=== PATIENT | male | born 1945 | race Caucasian/White ===

== ENCOUNTER 2018-07-23 09:45 | Day surgery (SDC) | payer MEDICARE, OTHER, SELFPAY ==
--- NOTE | 2018-07-23 | PATH_ITS ---
[facility] Accession Number: [id number] . 01 Material submitted: . PART A: POLYP BIOPSY IN THE CECUM PART B: POLYP BIOPSY AT 30CM . 02 Diagnosis: A. Polyp Biopsy in the Cecum: Tubular adenoma (multiple fragments); negative for high-grade dysplasia. . B. Polyp Biopsy at 30 cm: Serrated polyp, cannot exclude sessile serrated adenoma. MRV/07/25/2018 . 02 Electronically signed: . Arianna Cho MD, Pathologist NPI- [id number] . 01 Gross description: . Part A: POLYP BIOPSY IN THE CECUM: Received in formalin are multiple fragment(s) of vega, soft tissue measuring 1.0 x 0.5 x 0.2 cm in aggregate submitted entirely in 1 cassette(s) Part B: POLYP BIOPSY AT 30CM: Received in formalin are multiple fragment(s) of vega, soft tissue measuring 1.1 x 0.4 x 0.2 cm in aggregate submitted entirely in 1 cassette(s) /CKI /CKI . 02 Pathologist provided ICD-10: K63.5 . 02 CPT . 981390, 931381 Performed at: 01 [facility] [address], [place], [place] [id number] MD Bobby Saleh MD Phone: [phone] Performed at: 02 [facility] [address] [place], [place] [id number] MD Ricco Santana MD Phone: [phone]
[2018-07-23 10:18] VITALS: BP 150/81; PULSE 61; RESP 16; TEMP 36.1; O2SAT 99; BMI 27.4
[2018-07-23] MEDS: SODIUM CHLORIDE 0.9% 1,000 ML 200 ML IV (10:32)
--- NOTE | 2018-07-23 12:03 | PM.HP.1 ---
History of Present Illness Date Patient Seen: 07/23/18 Time Patient Seen: 12:03 Chief complaint: colonoscopy 60012 Narrative: The patient is a gentleman here for a screening colonoscopy. Last exam was 5 years ago. Since his last exam his sisters had colon cancer. He has a personal history of polyps. Patient History Medical History Essential hypertension with goal blood pressure less than 130/85 (Chronic) Surgical History H/O right inguinal hernia repair (Resolved) Previous back surgery (Resolved) Family & Social History Family History: Reviewed 07/23/18 by Lawrence Yates MD Social History: household members spouse Meds Home Medications Medication Instructions Recorded Confirmed Type IBUPROFEN (#MOTRIN / ADVIL) 400 mg PO #0 01/12/12 History losartan 50 mg PO QDAY #180 tab 10/31/16 Rx metoprolol succinate 50 mg PO BID #180 ter 04/09/17 Rx magnesium chloride [Slow-Mag] 1 ect PO QDAY #0 09/24/17 History Allergies Allergy/AdvReac Type Severity Reaction Status Date / Time amoxicillin Allergy Intermediate RASH, FEVER Unverified 02/27/18 13:10 gabapentin [GABAPENTIN] AdvReac Intermediate interferes Unverified 02/27/18 13:10 with short-term memory Review of Systems Review of Systems All systems reviewed & are unremarkable except as noted in HPI and below Gastrointestinal Comments: History of Mack's esophagus. Last scope a few years back. Exam Vital Signs (past 8 hours): - 07/23/18 10:18 Temperature 96.9 F L Pulse Rate 61 Respiratory Rate 16 Blood Pressure 150/81 H Pulse Oximetry 99 Oxygen Delivery Method Room Air Narrative Exam Narrative: Operative no apparent distress. Lungs are clear to auscultation no rales or rhonchi. Heart regular rate and rhythm without murmur gallop. Abdomen is scaphoid soft nontender without mass. Patient is alert and oriented x3. Assessment & Plan Plan: Assessment/Plan Narrative: Patient with a family history of colon cancer for screening colonoscopy. I discussed procedure rationale with him. Risks of bleeding, perforation which was necessitate a major operation, failure to find removal lesions of potential tattoo were all discussed. He appears to understand wishes to proceed
--- NOTE | 2018-07-23 12:07 | P.HP_ITS ---
History of Present Illness Date Patient Seen: 07/23/18 Time Patient Seen: 12:03 Chief complaint: colonoscopy [id number] Narrative: The patient is a gentleman here for a screening colonoscopy. Last exam was 5 years ago. Since his last exam his sisters had colon cancer. He has a personal history of polyps. Patient History Medical History Essential hypertension with goal blood pressure less than 130/85 (Chronic) Surgical History H/O right inguinal hernia repair (Resolved) Previous back surgery (Resolved) Family & Social History Family History: Reviewed 07/23/18 by Lawrence Yates MD Social History: household members spouse Meds Home Medications Medication Instructions Recorded Confirmed Type IBUPROFEN (#MOTRIN / ADVIL) 400 mg PO #0 01/12/12 History losartan 50 mg PO QDAY #180 tab 10/31/16 Rx metoprolol succinate 50 mg PO BID #180 ter 04/09/17 Rx magnesium chloride [Slow-Mag] 1 ect PO QDAY #0 09/24/17 History Allergies Allergy/AdvReac Type Severity Reaction Status Date / Time amoxicillin Allergy Intermediate RASH, FEVER Unverified 02/27/18 13:10 gabapentin [GABAPENTIN] AdvReac Intermediate interferes Unverified 02/27/18 13: 10 with short-term memory Review of Systems Review of Systems All systems reviewed & are unremarkable except as noted in HPI and below Gastrointestinal Comments: History of Mack's esophagus. Last scope a few years back. Exam Vital Signs (past 8 hours): - 07/23/18 10:18 Temperature 96.9 F L Pulse Rate 61 Respiratory Rate 16 Blood Pressure 150/81 H Pulse Oximetry 99 Oxygen Delivery Method Room Air Narrative Exam Narrative: Operative no apparent distress. Lungs are clear to auscultation no rales or rhonchi. Heart regular rate and rhythm without murmur gallop. Abdomen is scaphoid soft nontender without mass. Patient is alert and oriented x3. Assessment & Plan Plan: Assessment/Plan Narrative: Patient with a family history of colon cancer for screening colonoscopy. I discussed procedure rationale with him. Risks of bleeding, perforation which was necessitate a major operation, failure to find removal lesions of potential tattoo were all discussed. He appears to understand wishes to proceed
[2018-07-23] MEDS: fentaNYL 250 MCG/5 ML INJ IV (12:35)
--- NOTE | 2018-07-23 12:43 | PM.OP.ENDO ---
Operative Date/Time/Diagnoses Date of procedure: 07/23/18 Time of procedure: 12:43 Pre-op diagnosis: Screening examination. Family history colon cancer. Last exam 5 years ago. Personal history of polyps. Post-op diagnosis: same (Multiple tiny polyps located at the ascending and cecal areas. Three were placed in the same container because they are all from the right side. One additional polyp was found at about 30 cm.) Procedure & Clinicians Study performed: Colonoscopy with cold biopsy Same procedure as scheduled: Yes Indications: Screening. Procedure Notes SCOAP/Timeout: Performed Procedure in detail: The patient was placed in the left lateral decubitus position and underwent IV sedation directed by the surgeon consisting of fentanyl and Versed. Digital exam was unremarkable. Prostate was fairly normal in size. The scope was inserted and advanced through the rectum into the sigmoid, descending, transverse, and ascending colon. The patient was noted to have a large number of sigmoid diverticulosis causing tortuosity and mild narrowing. The cecum was reached identified by the ileocecal valve and the appendiceal opening. There was a small polyp like lesion in the cecum which was removed with cold biopsy forceps. The scope was gradually brought out. Two additional small polyps were found in the ascending colon were placed with a cecal polyp. One other Polyps was found at[30 cm and was biopsied repeatedly and completely removed.]. The scope ultimately was retroflexed in the rectum. The appearance was[unremarkable]. The scope was removed and the patient tolerated the procedure well Scope withdrawal time: 14 min Sedation minutes: 35 Findings: diverticulosis (With narrowing and tortuosity of the sigmoid) and polyp (Small) Specimen(s): other (Polyps) Complications: none Recommendations: Colonscopy in 5 years (Due to personal and family history) Follow up: as needed Disposition: PACU
[2018-07-23] MEDS: MIDAZOLAM 5 MG/5 ML VIAL IV (12:46)
[2018-07-23 12:58] VITALS: BP 120/65; PULSE 57; RESP 16; TEMP 36.2; O2SAT 95
--- NOTE | 2018-07-23 13:07 | SUR.PHASEII ---
REPORT TO TRISHA.
[2018-07-23 13:10] VITALS: BP 104/59; PULSE 56; RESP 16; O2SAT 96
== END 2018-07-23 13:21 | disposition home or self-care (01) ==
PROVIDERS: Visit Provider Specialist
PROC: 0DJD8ZZ Inspection of Lower Intestinal Tract, Via Natural or Artificial Opening Endoscopic (ICD-10-PCS; CPT 45378; principal; 2018-07-23 10:45)
DX: Z12.11 Encounter for screening for malignant neoplasm of colon (principal); Z80.0 Family history of malignant neoplasm of digestive organs; I10 Essential (primary) hypertension; Z86.010 Personal history of colon polyps; K57.30 Diverticulosis of large intestine without perforation or abscess without bleeding; D12.0 Benign neoplasm of cecum; D12.2 Benign neoplasm of ascending colon
CPT/HCPCS: 45380; 88305; 99152; 99153; J2250; J3010

== ENCOUNTER → 2018-11-05 08:40 | Outpatient (CLI) | payer MEDICARE, OTHER, SELFPAY ==
--- NOTE | 2018-11-05 | DI.RAD.S_ITS ---
PROCEDURE: XR FOOT RT MIN 3V INDICATIONS: PAIN OF RIGHT ANKLE AND RIGHT FOOT TECHNIQUE: 3 views of the foot were acquired. COMPARISON: None. FINDINGS: Bones: No fractures or dislocations. No suspicious bony lesions. Mild ununited spurring/dystrophic ossification at the Achilles insertion. First MTP joint degeneration, and diffuse hindfoot and midfoot spurring. Hallux valgus appearance all weight-bearing views would be more specific Soft tissues: No tibiotalar joint effusion. Achilles tendon appears normal. IMPRESSION: Diffuse degenerative changes above. No fracture. Hallux valgus. Weight -bearing views would be more specific. Mild distal Achilles tendinopathy Dictated by: Hi Beaver M.D. on 11/05/2018 at 9:39 Approved by: Hi Beaver M.D. on 11/05/2018 at 9:45
--- NOTE | 2018-11-05 | DI.RAD.S_ITS ---
PROCEDURE: XR ANKLE RT MIN 3V INDICATIONS: PAIN OF RIGHT ANKLE AND RIGHT FOOT TECHNIQUE: 3 views of the ankle were acquired. COMPARISON: None. FINDINGS: Bones: No fractures or dislocations. Ankle mortise is normally aligned. No suspicious bony lesions. Subtle dystrophic calcifications seen at the Achilles insertion site. There are scattered vascular calcifications. Tibiotalar degenerative spurring, and at the tips of the medial and lateral malleoli Soft tissues: No tibiotalar joint effusion. Achilles tendon appears normal. Mild circumferential swelling IMPRESSION: Circumferential soft tissue swelling. Mild degenerative spurring as above, and probable low-grade Achilles tendinopathy, age-indeterminate. No fracture. Dictated by: Hi Beaver M.D. on 11/05/2018 at 10:12 Approved by: Hi Beaver M.D. on 11/05/2018 at 10:15
== END ==
PROVIDERS: Visit Provider Family Medicine
DX: M79.671 Pain in right foot (principal); M25.571 Pain in right ankle and joints of right foot; M19.071 Primary osteoarthritis, right ankle and foot; M20.11 Hallux valgus (acquired), right foot; M79.89 Other specified soft tissue disorders; M77.51 Other enthesopathy of right foot and ankle
CPT/HCPCS: 73610; 73630

== ENCOUNTER → 2021-01-24 08:59 | Outpatient (CLI) | payer MEDICARE, OTHER, SELFPAY | PROVIDERS: PCP Family Medicine; Referring Provider Family Medicine; Visit Provider Family Medicine | DX: M47.16 Other spondylosis with myelopathy, lumbar region (principal); Z53.20 Procedure and treatment not carried out because of patient's decision for unspecified reasons ==

== ENCOUNTER → 2021-02-14 09:32 | Outpatient (CLI) | payer MEDICARE, OTHER, SELFPAY ==
--- NOTE | 2021-02-14 | DI.MRI.S_ITS ---
PROCEDURE: MR LUMBAR SPINE WO CON INDICATIONS: other sponylosis with myelopathy TECHNIQUE: Noncontrast sagittal T1 spin echo and T2 fast echo, sagittal STIR, axial T1 and T2 fast spin echo through the lumbar spine. In cases with scoliosis, additional coronal T2 fast spin echo may be performed. COMPARISON: [facility], MR, L-SPINE WITHOUT CONTRAST, 01/27/2015, 10:40. FINDINGS: Image quality: Excellent. Alignment and Curvature: There is grade 1 retrolisthesis of L2 on L3, L3 on L4, L4 on L5 measuring 2 mm, 5 mm and 5 mm respectively. There is grade 1 anterolisthesis of L4 on L5 measuring 3 mm. These are unchanged. Bone Marrow: Marrow is of normal overall signal. No acute vertebral body compression fractures. Spinal Cord: Conus medullaris terminates at the L2 level. Visualized cord demonstrates normal signal and size. Paraspinous Soft Tissues: No paravertebral masses. Discs: [id number] desiccation is present throughout the lumbar spine most severe at L5-S1. L1-L2: No disc bulge, spinal stenosis or foraminal narrowing. Minimal epidural lipomatosis with mild facet and ligamentum flavum hypertrophy. L2-L3: Mild disc bulge with minimal spinal stenosis. Mild left foraminal narrowing, slightly progressive. Facet and ligamentum flavum hypertrophy as well as epidural lipomatosis are present. L3-L4: Mild disc bulge with mild spinal stenosis. Moderate left and [id number] right foraminal narrowing with facet and ligamentum flavum hypertrophy as well as epidural lipomatosis. No interval change. L4-L5: Posterior laminectomy changes are present. Mild disc bulge. There is mild spinal stenosis predominantly secondary to facet hypertrophy, unchanged fluid epidural lipomatosis. Bilateral mild bilateral foraminal narrowing with facet and ligamentum flavum hypertrophy. L5-S1: Mild disc bulge with mild spinal stenosis. Moderate bilateral foraminal narrowing with facet and ligamentum flavum hypertrophy. No interval change. IMPRESSION: 1. Multilevel disc bulges, spinal stenosis and foraminal narrowing, relatively stable, noting small areas of interval progression as above. 2. Multilevel foraminal narrowing most notable at L3-4 and L5-S1 secondary to facet arthropathy. 3. Multilevel spinal stenosis most notable at L3-4, L4-5 and L5-S1 secondary to disc bulge with contributing effect of facet/ligamentum flavum arthropathy and epidural lipomatosis. Dictated by: Laurel Cullen M.D. on 02/14/2021 at 14:01 Approved by: Laurel Cullen M.D. on 02/14/2021 at 14:12
== END ==
PROVIDERS: PCP Family Medicine; Referring Provider Family Medicine; Visit Provider Family Medicine
DX: M47.16 Other spondylosis with myelopathy, lumbar region (principal); M51.06 Intervertebral disc disorders with myelopathy, lumbar region; M48.061 Spinal stenosis, lumbar region without neurogenic claudication; M48.07 Spinal stenosis, lumbosacral region
CPT/HCPCS: 72148

== ENCOUNTER → 2021-03-15 08:59 | Outpatient (CLI) | payer MEDICARE, OTHER, SELFPAY ==
--- NOTE | 2021-03-15 09:01 | DI.RAD.S_ITS ---
PROCEDURE: XR LUMBAR SPINE MIN 4V INDICATIONS: LOW BACK PAIN LEFT LOWER EXTREMITY RADICULOPATHY TECHNIQUE: 5 views of the lumbar spine were acquired, including bilateral oblique views. COMPARISON: None. FINDINGS: Bones: 5 nonrib-bearing vertebrae are present. There is normal bony alignment. No vertebral body compression fractures. No suspicious bony lesions. There is moderate disc height reduction at T12-L1 and mild such degenerative change at L1-L2 and L2-L3. Facet osteoarthritis at this level allows slight retrolisthesis of L2 across L3. A slightly greater degree of facet osteoarthritis allowing slightly greater retrolisthesis of L3 across the L4 and also contributes to foraminal stenosis at this level. At L4-L5 there is mild degenerative disc disease but moderate facet osteoarthritis. At L5-S1 there is moderately severe degenerative disc disease and facet osteoarthritis. Soft tissues: Overlying bowel gas pattern is normal. No suspicious soft tissue calcifications. Oblique images: No pars defects. IMPRESSION: Multilevel degenerative disc disease and facet osteoarthritis with no sign of prior trauma. Multilevel foraminal stenosis likely is present. Overall the degree of degeneration appears symmetric bilaterally. Dictated by: Vin Villarreal M.D. on 03/15/2021 at 9:53 Approved by: Vin Villarreal M.D. on 03/15/2021 at 9:59
== END ==
PROVIDERS: PCP Family Medicine; Referring Provider Physical Medicine & Rehabilitation; Visit Provider Physical Medicine & Rehabilitation
DX: M54.16 Radiculopathy, lumbar region (principal); M51.36 Other intervertebral disc degeneration, lumbar region; M47.816 Spondylosis without myelopathy or radiculopathy, lumbar region
CPT/HCPCS: 72110

== ENCOUNTER → 2021-04-15 09:19 | Outpatient (CLI) | payer MEDICARE, OTHER, SELFPAY ==
[2021-04-15 20:02] LABS: Vitamin B12 281 pg/mL (239-931)
== END ==
PROVIDERS: PCP Family Medicine; Visit Provider Family Medicine
DX: E53.8 Deficiency of other specified B group vitamins (principal)
CPT/HCPCS: 82607

== ENCOUNTER → 2021-06-07 12:33 | Outpatient (CLI) | payer MEDICARE, OTHER, SELFPAY ==
[2021-06-07 20:21] LABS: COVID19 - ORCAS (NP or Nasal) Negative (Negative)
== END ==
PROVIDERS: PCP Family Medicine; Visit Provider Physician Assistant
DX: Z20.822 Contact with and (suspected) exposure to COVID-19 (principal)
CPT/HCPCS: C9803; U0003

== ENCOUNTER 2021-06-09 12:22 | Outpatient (CLI) | payer MEDICARE, OTHER, SELFPAY ==
[2021-06-09] VITALS (8 sets, daily range): BP systolic 122–196; BP diastolic 55–94; PULSE 64–72; RESP 10–20; TEMP 36.6; O2SAT 97–99
--- NOTE | 2021-06-09 12:26 | DI.RAD.S_ITS ---
PROCEDURE: PAIN L/S TRANSFORAMINAL INJECT INDICATIONS: SPONDYLOSIS COMPARISON: [facility], CR, XR LUMBAR SPINE MIN 4V, 03/15/2021, 8:59. FINDINGS: Fluoroscopic spot filming was performed to verify placement of a spinal needle at the L5-S1 level, as labeled on the films. Appropriate location of the needle tip was confirmed by injection of iodinated contrast. IMPRESSION: No significant intraprocedural abnormality. Dictated by: Byron Church M.D. on 06/09/2021 at 13:05 Approved by: Byron Church M.D. on 06/09/2021 at 13:06
[2021-06-09] MEDS: MIDAZOLAM 5 MG/5 ML VIAL IV (13:17)
[2021-06-09] MEDS: fentaNYL 100 MCG/2 ML INJ 50 MCG IV (13:17)
[2021-06-09] MEDS: IOPAMIDOL 15 ML VIAL 3 ML INJ (13:22)
[2021-06-09] MEDS: DEXAMETHASONE 10 MG/ML VIAL 20 MG INJ (13:22)
[2021-06-09] MEDS: BETAMETHASONE 30 MG/5 ML MDV 6 MG INJ (13:23)
[2021-06-09] MEDS: BUPIVACAINE 0.25% (PF) VIAL 2 ML INJ (13:23)
--- NOTE | 2021-06-13 09:50 | P.PCN_ITS ---
Date/Time/Diagnoses Date of procedure: 06/09/21 Time of procedure: 13:30 Pre-procedure diagnosis: FORAMINAL STENOSIS WITH LE SYMPTOMS Post-procedure diagnosis: same Procedure Notes Procedure: 1. FLUOROSCOPICALLY GUIDED CONTRAST CONTROLLED TRANSFORAMINAL EPIDURAL STEROID INJECTION - RIGHT L5/S1 TFESI Indications: Andre is referred by Dr. Smith for treatment of Foraminal Stenosis with Right LE Symptoms Physician: Iron Madsen Total Fluoroscopy time (seconds): 8 Total sedation minutes: 13 Complications: none Procedure in detail & Post-procedure care: FINDINGS Foraminal Nerve Root Compression secondary to disc disease and facet hypertrophy DESCRIPTION OF PROCEDURE Following review of allergy and review of potential side effects and complications, including, but not necessarily limited to, infection, allergic reaction, local tissue breakdown, stroke, temporary or permanent nerve injury, paralysis, and possible , the patient indicated that the patient understood and agreed to proceed. An informed consent document was signed by the patient, witnessed by a nurse, and placed in the patient's chart. Additionally, other treatment options including medications, modalities, and physical therapy were reviewed with the patient. After review of previous anaesthesic history and IV conscious sedation the patient was deemed safe to proceed with today?s procedure with IV conscious sedation as ASA class II designation. Safety time-out was performed to confirm patient ID, procedure to be performed and site of procedure. IV sedation was accomplished with a combination of 2mg of Versed and 50mcg of Fentanyl was administered by the RN after DO order, titrated to patient comfort during the course of the procedure while the patient remained responsive to all verbal commands In the prone position following sterile prep and drape of the lumbar region, the right L5/S1 posterior neuroforamen was identified fluoroscopically. The skin was anesthetized via a 25-gauge 1.5-inch needle with 1% lidocaine solution. At this point, a 25-gauge 3.5-inch spinal needle was atraumatically introduced and advanced under fluoroscopic guidance through the posterior right L5/S1 neuroforamen to approximately the anterior aspect of the canal. Depth was confirmed on lateral view. Following negative aspiration, injection of approximately 1.5cc of Isovue 200 under live fluoroscopy in the AP view confirmed excellent flow along the nerve root, into the epidural space without vascular or intrathecal uptake observed Radiological data, including multiple fluoroscopic views of the lumbosacral spine, reveal a spinal needle at the right L5/S1 posterior neuroforamen. Subsequent views show flow of contrast material flowing superiorly and inferiorly along the nerve root confirming epidural flow. Subsequently, a test dose of 1.5 cc of 1% lidocaine solution was administered and patient was observed for two minutes for signs or symptoms of complications, including abdominal pain, shortness of breath, bilateral upper or lower extremity weakness, nausea and vomiting, prior to steroid injection. At this point, a total of 3cc or 20mg of dexamethasone and 6mg of betamethasone was injected without incident. The procedure tolerated the procedure well without signs or symptoms of complications prior to transfer to the recovery area continued monitoring without incident. The patient was then transferred to the recovery area where they were observed for an appropriate time after the injection. The patient reported a VAS score of 7 prior to the procedure and a post- procedure VAS of 0. POST OP INSTRUCTIONS The patient was provided a Pain Log to continue to record their response to the target-specific procedure prior to follow-up visit with their referring physician. Additionally, specific post-injection care instructions and a contact number to our office were provided if concerns arise regarding possible complications associated with the procedure are suspected.
== END 2021-06-09 13:50 | disposition home or self-care (01) ==
LOC: RAD 12:25
PROVIDERS: PCP Family Medicine; Referring Provider Physical Medicine & Rehabilitation; Visit Provider Physical Medicine & Rehabilitation
DX: M48.07 Spinal stenosis, lumbosacral region (principal); M51.17 Intervertebral disc disorders with radiculopathy, lumbosacral region
CPT/HCPCS: 64483; 99152; J0702; J1100; J2250; J3010

== ENCOUNTER → 2021-07-12 08:53 | Outpatient (CLI) | payer MEDICARE, OTHER, SELFPAY ==
[2021-07-12 20:19] LABS: COVID19 - ORCAS (NP or Nasal) Negative (Negative)
== END ==
PROVIDERS: PCP Family Medicine; Referring Provider Physician Assistant; Visit Provider Physician Assistant
DX: Z20.822 Contact with and (suspected) exposure to COVID-19 (principal)
CPT/HCPCS: C9803; U0003

== ENCOUNTER 2021-07-14 10:32 | Outpatient (CLI) | payer MEDICARE, OTHER, SELFPAY ==
[2021-07-14] VITALS (8 sets, daily range): BP systolic 136–200; BP diastolic 64–96; PULSE 71–78; RESP 10–20; TEMP 37.1; O2SAT 96–99
--- NOTE | 2021-07-14 10:33 | DI.RAD.S_ITS ---
PROCEDURE: PAIN L/S TRANSFORAMINAL INJECT INDICATIONS: SPONDYLOSIS COMPARISON: [facility], , PAIN L/S TRANSFORAMINAL INJECT, 06/09/2021, 13:22. FINDINGS: Fluoroscopic spot filming was performed to verify placement of a spinal needle at the L3-L4 level, as labeled on the films. Appropriate location of the needle tip was confirmed by injection of iodinated contrast. IMPRESSION: Intraprocedural examination within normal limits. Dictated by: Byron Church M.D. on 07/14/2021 at 11:34 Approved by: Byron Church M.D. on 07/14/2021 at 11:34
[2021-07-14] MEDS: MIDAZOLAM 5 MG/5 ML VIAL IV (11:40)
[2021-07-14] MEDS: fentaNYL 100 MCG/2 ML INJ 50 MCG IV (11:42)
[2021-07-14] MEDS: IOPAMIDOL 15 ML VIAL 3 ML INJ (11:49)
[2021-07-14] MEDS: DEXAMETHASONE 10 MG/ML VIAL 20 MG INJ (11:50)
[2021-07-14] MEDS: BUPIVACAINE 0.25% (PF) VIAL 5 ML SUBCUT (11:51)
--- NOTE | 2021-07-14 11:58 | P.PCN_ITS ---
Date/Time/Diagnoses Date of procedure: 07/14/21 Time of procedure: 11:58 Pre-procedure diagnosis: 1. FORAMINAL STENOSIS WITH LE SYMPTOMS Post-procedure diagnosis: same Procedure Notes Procedure: 1. FLUOROSCOPICALLY GUIDED CONTRAST CONTROLLED TRANSFORAMINAL EPIDURAL STEROID INJECTION - RIGHT L3/4 TFESI Indications: Andre is referred by Dr. Powell for treatment of Foraminal Stenosis with right LE Symptoms Physician: Iron Madsen Total Fluoroscopy time (seconds): 10 Total sedation minutes: 13 Complications: none Procedure in detail & Post-procedure care: FINDINGS Foraminal Nerve Root Compression secondary to disc disease and facet hypertrophy DESCRIPTION OF PROCEDURE Following review of allergy and review of potential side effects and complications, including, but not necessarily limited to, infection, allergic reaction, local tissue breakdown, stroke, temporary or permanent nerve injury, paralysis, and possible , the patient indicated that the patient understood and agreed to proceed. An informed consent document was signed by the patient, witnessed by a nurse, and placed in the patient's chart. Additionally, other treatment options including medications, modalities, and physical therapy were reviewed with the patient. After review of previous anaesthesic history and IV conscious sedation the patient was deemed safe to proceed with today?s procedure with IV conscious sedation as ASA class II designation. Safety time-out was performed to confirm patient ID, procedure to be performed and site of procedure. IV sedation was accomplished with a combination of 2mg of Versed and 50mcg of Fentanyl was administered by the RN after DO order, titrated to patient comfort during the course of the procedure while the patient remained responsive to all verbal com mands In the prone position following sterile prep and drape of the lumbar region, the right L3/4 posterior neuroforamen was identified fluoroscopically. The skin was anesthetized via a 25-gauge 1.5-inch needle with 1% lidocaine solution. At this point, a 25-gauge 3.5-inch spinal needle was atraumatically introduced and advanced under fluoroscopic guidance through the posterior right L3/4 neuro foramen to approximately the anterior aspect of the canal. Depth was confirmed on lateral view. Following negative aspiration, injection of approximately 1.5 cc of Isovue 200 under live fluoroscopy in the AP view confirmed excellent flow along the nerve root, into the epidural space without vascular or intrathecal uptake observed Radiological data, including multiple fluoroscopic views of the lumbosacral spine, reveal a spinal needle at the right L3/4 posterior neuroforamen. Subsequent views show flow of contrast material flowing superiorly and inferiorly along the nerve root confirming epidural flow. Subsequently, a test dose of 1.5 cc of 1% lidocaine solution was administered and patient was observed for two minutes for signs or symptoms of complications, including abdominal pain, shortness of breath, bilateral upper or lower extremity weakness, nausea and vomiting, prior to steroid injection. At this point, a total of 3cc or 20mg of dexamethasone and 80mg of Depo medrol was injected without incident. The patient tolerated the procedure well without signs or symptoms of complications prior to transfer to the recovery area continued monitoring without incident. The patient was then transferred to the recovery area where they were observed for an appropriate time after the injection. The patient reported a VAS score of 7 prior to the procedure and a post-procedure VAS of 0. POST OP INSTRUCTIONS The patient was provided a Pain Log to continue to record their response to the target-specific procedure prior to follow-up visit with their referring physician. Additionally, specific post-injection care instructions and a contact number to our office were provided if concerns arise regarding possible complications associated with the procedure are suspected.
== END 2021-07-14 12:10 | disposition home or self-care (01) ==
PROVIDERS: PCP Family Medicine; Referring Provider Physical Medicine & Rehabilitation; Visit Provider Physical Medicine & Rehabilitation
DX: M48.061 Spinal stenosis, lumbar region without neurogenic claudication (principal); M51.16 Intervertebral disc disorders with radiculopathy, lumbar region
CPT/HCPCS: 64483; 99152; J0702; J1100; J2250; J3010

== ENCOUNTER → 2021-09-05 09:03 | Outpatient (CLI) | payer MEDICARE, OTHER, SELFPAY ==
[2021-09-05 20:20] LABS: COVID19 - ORCAS (NP or Nasal) Negative (Negative)
== END ==
PROVIDERS: PCP Family Medicine; Visit Provider Family Medicine
DX: Z20.822 Contact with and (suspected) exposure to COVID-19 (principal)
CPT/HCPCS: C9803; U0003

== ENCOUNTER 2021-09-06 10:07 | Outpatient (CLI) | payer MEDICARE, OTHER, SELFPAY ==
[2021-09-06] VITALS (7 sets, daily range): BP systolic 133–185; BP diastolic 60–91; PULSE 62–71; RESP 10–22; TEMP 36.8; O2SAT 97–100
--- NOTE | 2021-09-06 10:09 | DI.RAD.S_ITS ---
PROCEDURE: PAIN L/SI FACET INJ/BLK 1STL INDICATIONS: SPONDYLOSIS COMPARISON: [facility], , PAIN L/S TRANSFORAMINAL INJECT, 07/14/2021, 11:47. FINDINGS: Fluoroscopic spot filming was performed to verify placement of spinal needles at the right L2-L3, L3-L4, and L4-L5 level(s), as labeled on the films. Appropriate location(s) of the needle tip(s) was confirmed by injection of iodinated contrast. IMPRESSION: Intraprocedural examination within normal limits. Dictated by: Byron Church M.D. on 09/06/2021 at 13:09 Approved by: Byron Church M.D. on 09/06/2021 at 13:09
[2021-09-06] MEDS: fentaNYL 100 MCG/2 ML INJ 50 MCG IV (11:15)
[2021-09-06] MEDS: MIDAZOLAM 5 MG/5 ML VIAL IV (11:15)
[2021-09-06] MEDS: BETAMETHASONE 30 MG/5 ML MDV 12 MG INJ (11:18)
[2021-09-06] MEDS: BUPIVACAINE 0.5% (PF) VIAL 5 ML INJ (11:18)
[2021-09-06] MEDS: IOPAMIDOL 15 ML VIAL 3 ML INJ (11:18)
--- NOTE | 2021-09-06 11:29 | P.PCN_ITS ---
Date/Time/Diagnoses Date of procedure: 09/06/21 Time of procedure: 11:29 Pre-procedure diagnosis: 1. FACET ARTHROPATHY, 2. AXIAL LBP, 3. MULTILEVEL DDD Post-procedure diagnosis: same Procedure Notes Procedure: 1. FLUOROSCOPICALLY GUIDED CONTRAST CONTROLLED FACET JOINT INJECTIONS RIGHT L2/3, L3/4, L4/5 Indications: Andre is referred by Dr. Powell for treatment of Axial LBP Physician: Iron Madsen Total Fluoroscopy time (seconds): 5 Total sedation minutes: 9 Complications: none Procedure in detail & Post-procedure care: FINDINGS Multilevel Facet Arthropathy with Clinically significant axial LBP DESCRIPTION OF PROCEDURE Fluoroscopically guided, contrast-controlled right L2/3, L3/4, L4/5 facet joint injections. Following review of allergy and review of potential side effects and complications, including, but not necessarily limited to, infection, allergic reaction, local tissue breakdown, stroke, temporary or permanent nerve injury, paralysis, and possible , the patient indicated that the patient understood and agreed to proceed. An informed consent document was signed by the patient, witnessed by a nurse, and placed in the patient's chart. Additionally, other treatment options including medications, modalities, and physical therapy were reviewed with the patient. After review of previous anaesthesic history and IV conscious sedation the patient was deemed safe to proceed with today?s procedure with IV conscious sedation as ASA class II designation. Safety time-out was performed to confirm patient ID, procedure to be performed and site of procedure. IV sedation was accomplished with a combination of 2mg of Versed and 50mcg of Fentanyl administered by the RN after DO order, titrated to patient comfort during the course of the procedure while the patient remained responsive to all verbal commands. In the prone position, following sterile prep and drape of the lumbar region, the posterior aspect of the right L2/3, L3/4, L4/5 facet joints were identified fluoroscopically. The skin was anesthetized via a 25-gauge 1.5-inch needle with 1% lidocaine solution into the corresponding facet joints. At this point, a 22- gauge 3.5-inch spinal needle was atraumatically introduced and advanced under fluoroscopic guidance into the corresponding facet joints. Following negative aspiration, injections of approximately 0.2-cc of Isovue 200 confirmed interarticular placement without vascular uptake. Radiological data, including multiple fluoroscopic views of the lumbosacral spine, reveal a spinal needle at the right L2/3, L3/4, L4/5 facet joints. Subsequent views show flow of contrast material both superiorly and inferiorly within the joint space without vascular or intrathecal uptake. At this point, a total of 0.5cc including a mixture of 0.25cc Marcaine and 0.25cc betamethasone was injected without complication into each of the corresponding facet joints. The patient tolerated the procedure well without signs or symptoms of complications prior to transfer to the recovery area for further monitoring. The patient was then transferred to the recovery area where they were observed for an appropriate period of time after the injection. The patient reported a VAS score of 7 prior to the procedure and a post-procedure VAS of 0. POST OP INSTRUCTIONS The patient was provided a Pain Log to continue to record their response to the target-specific procedure prior to follow-up visit with their referring physician. Additionally, specific post-injection care instructions and a contact number to our office were provided if concerns arise regarding possible complications associated with the procedure are suspected.
== END 2021-09-06 11:46 | disposition home or self-care (01) ==
LOC: RAD 10:08
PROVIDERS: PCP Family Medicine; Referring Provider Physical Medicine & Rehabilitation; Visit Provider Physical Medicine & Rehabilitation
DX: M47.816 Spondylosis without myelopathy or radiculopathy, lumbar region (principal); M51.36 Other intervertebral disc degeneration, lumbar region; M54.59 Other low back pain
CPT/HCPCS: 64493; 64494; 64495; J0702; J2250; J3010

== ENCOUNTER → 2022-01-03 07:36 | Outpatient (CLI) | payer MEDICARE, OTHER, SELFPAY ==
[2022-01-03 19:54] LABS: COVID-19 CEPHEID PCR (VTM/NP) Negative (Negative)
== END ==
PROVIDERS: PCP Family Medicine; Visit Provider Family Medicine
DX: Z20.822 Contact with and (suspected) exposure to COVID-19 (principal)
CPT/HCPCS: C9803; U0003; U0005

== ENCOUNTER 2022-01-05 12:12 | Outpatient (CLI) | payer MEDICARE, OTHER, SELFPAY ==
[2022-01-05] VITALS (8 sets, daily range): BP systolic 120–179; BP diastolic 60–86; PULSE 57–65; RESP 12–18; TEMP 36.7; O2SAT 97–100
--- NOTE | 2022-01-05 12:15 | DI.RAD.S_ITS ---
PROCEDURE: PAIN L/SI FACET INJ/BLK 1STL INDICATIONS: SPONDYLOSIS COMPARISON: [facility], , PAIN L/SI FACET INJ/BLK 1STL, 09/06/2021, 11:19. FINDINGS: Fluoroscopic spot filming was performed to verify placement of spinal needles on the right at the L2, L3, L4, and L5 levels, as labeled on the films. Appropriate location of the needle tips was confirmed by injection of iodinated contrast. IMPRESSION: Intraprocedural examination within normal limits. Dictated by: Byron Church M.D. on 01/05/2022 at 13:01 Approved by: Byron Church M.D. on 01/05/2022 at 13:01
[2022-01-05] MEDS: fentaNYL 100 MCG/2 ML INJ 50 MCG IV (13:30)
[2022-01-05] MEDS: MIDAZOLAM 5 MG/5 ML VIAL IV (13:30)
[2022-01-05] MEDS: LIDOCAINE 1% 20 ML (13:36)
[2022-01-05] MEDS: BUPIVACAINE 0.5% (PF) VIAL 5 ML INJ (13:36)
[2022-01-05] MEDS: IOPAMIDOL 15 ML VIAL 3 ML INJ (13:36)
--- NOTE | 2022-01-05 13:47 | PM.PROC.IR.1 ---
Date/Time/Diagnoses Date of procedure: 01/05/22 Time of procedure: 13:47 Pre-procedure diagnosis: 1. FACET ARTHROPATHY This procedure is found to meet the Governor's proclamation 20-24.2 regarding non urgent procedures. This patient meets multiple criteria for the procedure including continuing or worsening of significant or severe pain, combined with further deterioration of the patient's condition or overall health as well as delay in treatment would be expected to result in less positive ultimate medical outcome. Therefore the decision to perform the procedure in an outpatient hospital setting is found to be in accordance with guidelines of the proclamation. Post-procedure diagnosis: same Procedure Notes Procedure: 1. Right L2, L3, L4, L5 MB BLOCKS Indications: Andre is referred by Dr. Powell for treatment of Right Axial LBP. Physician: Iron Madsen Total Fluoroscopy time (seconds): 7 Total sedation minutes: 11 Complications: none Procedure in detail & Post-procedure care: DESCRIPTION OF PROCEDURE Fluoroscopically guided, contrast-controlled right L2, L3, L4, L5 medial branch blocks with 0.5cc of 0.5% Marcaine. Following review of allergy and review of potential side effects and complications, including, but not necessarily limited to, infection, allergic reaction, local tissue breakdown, nerve injury, paralysis, stroke and possible , the patient indicated that the patient understood and agreed to proceed. An informed consent document was signed by the patient, witnessed by a nurse, and placed in the patient's chart. After review of previous anaesthesic history and IV conscious sedation the patient was deemed safe to proceed with today?s procedure with IV conscious sedation as ASA class II designation. Safety time-out was performed to confirm patient ID, procedure to be performed and site of procedure. IV sedation was accomplished with a combination of 2mg of Versed and 50 mcg Fentanyl was administered by the RN after DO order, titrated to patient comfort during the course of the procedure while the patient remained responsive to all verbal commands In the prone position, following sterile prep and drape of the lumbar region, the right L2, L3, L4, L5 anatomical location of the medial branch of the dorsal ramus was identified fluoroscopically. Subsequently an anesthetic skin wheal using 1% lidocaine solution was initiated at each of the anatomical spots. Subsequently then a 22-gauge 3.5-inch spinal needle was atraumatically introduced and advanced under fluoroscopic guidance at each of the corresponding sites at the right L2, L3 and L4 MB. After negative aspiration, 0.2 cc of Isovue 200 was injected, confirming placement without vascular or intrathecal uptake. Subsequently then 0.5cc of 0.5% Marcaine solution was injected at each of the corresponding sites at the right L2, L3, L4, L5 medial branch locations. The patient tolerated the procedure well without signs or symptoms of complications. The procedure tolerated the procedure well without signs or symptoms of complications prior to transfer to the recovery area continued monitoring without incident. Post-procedure, the patient was monitored initiating provocative activities to measure the amount of relief from block of the facetogenic pain. The patient reported a VAS of 7 prior to the procedure and a post-procedure VAS of 1. It has been a pleasure to assist in the diagnostic and therapeutic care of your patient. POST OP INSTRUCTIONS The patient was provided with a Pain Log to complete over the next several hours and subsequent days prior to the patient's follow up with the ordering physician. If the patient has licensed practical vocational nurse relief to the solution applied, then they may be a candidate for medial branch rhizotomy. The patient is aware, was provided, once again, with a Pain Log and will follow up with the referring physician for review and clinical correlation.
== END 2022-01-05 14:05 | disposition home or self-care (01) ==
LOC: RAD 12:15
PROVIDERS: PCP Family Medicine; Referring Provider Physical Medicine & Rehabilitation; Visit Provider Physical Medicine & Rehabilitation
DX: M47.816 Spondylosis without myelopathy or radiculopathy, lumbar region (principal); M47.817 Spondylosis without myelopathy or radiculopathy, lumbosacral region
CPT/HCPCS: 64493; 64494; 64495; 99152; J2250; J3010

== ENCOUNTER → 2022-04-04 06:58 | Outpatient (CLI) | payer MEDICARE, OTHER, SELFPAY ==
[2022-04-04 19:42] LABS: COVID19 - ORCAS (NP or Nasal) Negative (Negative)
== END ==
PROVIDERS: PCP Family Medicine; Visit Provider Physician Assistant
DX: Z20.822 Contact with and (suspected) exposure to COVID-19 (principal); Z01.812 Encounter for preprocedural laboratory examination
CPT/HCPCS: C9803; U0003

== ENCOUNTER 2022-04-06 10:38 | Outpatient (CLI) | payer MEDICARE, OTHER, SELFPAY ==
[2022-04-06] VITALS (7 sets, daily range): BP systolic 141–195; BP diastolic 68–99; PULSE 50–56; RESP 12–16; TEMP 36.3; O2SAT 99–100
--- NOTE | 2022-04-06 10:41 | DI.RAD.S_ITS ---
PROCEDURE: PAIN L/S TRANSFORAMINAL INJECT INDICATIONS: SPONDYLOSIS COMPARISON: [facility], XA, PAIN L/SI FACET INJ/BLK 1STL, 01/05/2022, 14:36. [facility], XA, PAIN L/SI FACET INJ/BLK 1STL, 09/06/2021, 11:19. [facility], XA, PAIN L/S TRANSFORAMINAL INJECT, 07/14/2021, 11:47. FINDINGS: Fluoroscopic spot filming was performed to verify placement of a spinal needle at the L4-L5 level, as labeled on the films. Appropriate location of the needle tip was confirmed by injection of iodinated contrast. IMPRESSION: Intraprocedural examination within normal limits. Dictated by: Byron Church M.D. on 04/06/2022 at 11:31 Approved by: Byron Church M.D. on 04/06/2022 at 11:34
[2022-04-06] MEDS: MIDAZOLAM 2 MG/2 ML VIAL IV (11:15)
[2022-04-06] MEDS: IOPAMIDOL 15 ML VIAL 3 ML INJ (11:19)
[2022-04-06] MEDS: DEXAMETHASONE 10 MG/ML VIAL 20 MG INJ (11:19)
[2022-04-06] MEDS: BUPIVACAINE 0.25% (PF) VIAL 2 ML INJ (11:19)
[2022-04-06] MEDS: BETAMETHASONE 30 MG/5 ML MDV 6 MG INJ (11:19)
--- NOTE | 2022-04-06 11:33 | PM.PROC.IR.1 ---
Date/Time/Diagnoses Date of procedure: 04/06/22 Time of procedure: 11:33 Pre-procedure diagnosis: 1. FORAMINAL STENOSIS WITH LE SYMPTOMS Post-procedure diagnosis: same Procedure Notes Procedure: 1. FLUOROSCOPICALLY GUIDED CONTRAST CONTROLLED TRANSFORAMINAL EPIDURAL STEROID INJECTION - RIGHT L4/5 TFESI Indications: Andre is referred by Dr. Powell for treatment of Foraminal Stenosis with Right LE Symptoms Physician: Iron Madsen Total Fluoroscopy time (seconds): 8 Total sedation minutes: 11 Complications: none Procedure in detail & Post-procedure care: FINDINGS Foraminal Nerve Root Compression secondary to disc disease and facet hypertrophy DESCRIPTION OF PROCEDURE Following review of allergy and review of potential side effects and complications, including, but not necessarily limited to, infection, allergic reaction, local tissue breakdown, stroke, temporary or permanent nerve injury, paralysis, and possible , the patient indicated that the patient understood and agreed to proceed. An informed consent document was signed by the patient, witnessed by a nurse, and placed in the patient's chart. Additionally, other treatment options including medications, modalities, and physical therapy were reviewed with the patient. After review of previous anaesthesic history and IV conscious sedation the patient was deemed safe to proceed with today?s procedure with IV conscious sedation as ASA class II designation. Safety time-out was performed to confirm patient ID, procedure to be performed and site of procedure. IV sedation was accomplished with a combination of 2mg of Versed was administered by the RN after DO order, titrated to patient comfort during the course of the procedure while the patient remained responsive to all verbal commands In the prone position following sterile prep and drape of the lumbar region, the right L4/5 posterior neuroforamen was identified fluoroscopically. The skin was anesthetized via a 25-gauge 1.5-inch needle with 1% lidocaine solution. At this point, a 25-gauge 3.5-inch spinal needle was atraumatically introduced and advanced under fluoroscopic guidance through the posterior right L4/5 neuroforamen to approximately the anterior aspect of the canal. Depth was confirmed on lateral view. Following negative aspiration, injection of approximately 1.5cc of Isovue 200 under live fluoroscopy in the AP view confirmed excellent flow along the nerve root, into the epidural space without vascular or intrathecal uptake observed Radiological data, including multiple fluoroscopic views of the lumbosacral spine, reveal a spinal needle at the right L4/5 posterior neuroforamen. Subsequent views show flow of contrast material flowing superiorly and inferiorly along the nerve root confirming epidural flow. Subsequently, a test dose of 1.5 cc of 1% lidocaine solution was administered and patient was observed for two minutes for signs or symptoms of complications, including abdominal pain, shortness of breath, bilateral upper or lower extremity weakness, nausea and vomiting, prior to steroid injection. At this point, a total of 3cc or 20mg of dexamethasone and 6mg of betamethasone was injected without incident. The procedure tolerated the procedure well without signs or symptoms of complications prior to transfer to the recovery area continued monitoring without incident. The patient was then transferred to the recovery area where they were observed for an appropriate time after the injection. The patient reported a VAS score of 7 prior to the procedure and a post-procedure VAS of 0. POST OP INSTRUCTIONS The patient was provided a Pain Log to continue to record their response to the target-specific procedure prior to follow-up visit with their referring physician. Additionally, specific post-injection care instructions and a contact number to our office were provided if concerns arise regarding possible complications associated with the procedure are suspected.
== END 2022-04-06 11:51 | disposition home or self-care (01) ==
PROVIDERS: PCP Family Medicine; Referring Provider Physical Medicine & Rehabilitation; Visit Provider Physical Medicine & Rehabilitation
DX: M48.061 Spinal stenosis, lumbar region without neurogenic claudication (principal); M51.16 Intervertebral disc disorders with radiculopathy, lumbar region
CPT/HCPCS: 64483; 99152; J0702; J1100; J2250

== ENCOUNTER → 2022-05-31 13:23 | Outpatient (CLI) | payer MEDICARE, OTHER, SELFPAY ==
[2022-05-31 20:15] LABS: Respiratory Syncytial Virus NEGATIVE (Not Detect)
[2022-05-31 20:34] LABS: COVID19 - ORCAS (NP or Nasal) Negative (Negative)
== END ==
PROVIDERS: PCP Family Medicine; Visit Provider Physician Assistant Medical
DX: J02.9 Acute pharyngitis, unspecified (principal)
CPT/HCPCS: 87070; 87634; U0003

== ENCOUNTER → 2022-08-07 07:39 | Outpatient (CLI) | payer MEDICARE, OTHER, SELFPAY ==
[2022-08-07 20:52] LABS: COVID19 - ORCAS (NP or Nasal) Negative (Negative)
== END ==
PROVIDERS: PCP Family Medicine; Visit Provider Family Medicine
DX: Z01.812 Encounter for preprocedural laboratory examination (principal); Z20.822 Contact with and (suspected) exposure to COVID-19
CPT/HCPCS: C9803; U0003

== ENCOUNTER 2022-08-08 10:39 | Outpatient (CLI) | payer MEDICARE, OTHER, SELFPAY ==
[2022-08-08] VITALS (9 sets, daily range): BP systolic 135–180; BP diastolic 67–93; PULSE 56–62; RESP 12–20; TEMP 36.5; O2SAT 99–100
--- NOTE | 2022-08-08 10:41 | DI.RAD.S_ITS ---
PROCEDURE: PAIN L/S TRANSFORAMINAL INJECT INDICATIONS: SPONDYLOSIS COMPARISON: [facility], , PAIN L/S TRANSFORAMINAL INJECT, 04/06/2022, 11:19. FINDINGS: Fluoroscopic spot filming was performed to verify placement of a spinal needle at the L5-S1 level, as labeled on the films. Appropriate location of the needle tip was confirmed by injection of iodinated contrast. IMPRESSION: No significant intraprocedural abnormality. Dictated by: Byron Church M.D. on 08/08/2022 at 11:15 Approved by: Byron Church M.D. on 08/08/2022 at 11:16
[2022-08-08] MEDS: MIDAZOLAM 2 MG/2 ML VIAL IV (11:32)
[2022-08-08] MEDS: IOPAMIDOL 15 ML VIAL 3 ML INJ (11:34)
[2022-08-08] MEDS: BUPIVACAINE 0.25% (PF) VIAL 2 ML INJ (11:34)
[2022-08-08] MEDS: DEXAMETHASONE 10 MG/ML VIAL 20 MG INJ (11:35)
[2022-08-08] MEDS: BETAMETHASONE 30 MG/5 ML MDV 6 MG INJ (11:35)
--- NOTE | 2022-08-08 11:47 | P.PCN_ITS ---
Date/Time/Diagnoses Date of procedure: 08/08/22 Time of procedure: 11:47 Pre-procedure diagnosis: FORAMINAL STENOSIS WITH LE SYMPTOMS Post-procedure diagnosis: same Procedure Notes Procedure: 1. FLUOROSCOPICALLY GUIDED CONTRAST CONTROLLED TRANSFORAMINAL EPIDURAL STEROID INJECTION - RIGHT L5/S1 TFESI Indications: Andre is referred by Dr. Powell for treatment of Foraminal Stenosis with Right LE Symptoms Physician: Iron Madsen Total Fluoroscopy time (seconds): 15 Total sedation minutes: 10 Complications: none Procedure in detail & Post-procedure care: FINDINGS Foraminal Nerve Root Compression secondary to disc disease and facet hypertrophy DESCRIPTION OF PROCEDURE Following review of allergy and review of potential side effects and complications, including, but not necessarily limited to, infection, allergic reaction, local tissue breakdown, stroke, temporary or permanent nerve injury, paralysis, and possible , the patient indicated that the patient understood and agreed to proceed. An informed consent document was signed by the patient, witnessed by a nurse, and placed in the patient's chart. Additionally, other treatment options including medications, modalities, and physical therapy were reviewed with the patient. After review of previous anaesthesic history and IV conscious sedation the patient was deemed safe to proceed with today?s procedure with IV conscious sedation as ASA class II designation. Safety time-out was performed to confirm patient ID, procedure to be performed and site of procedure. IV sedation was accomplished with a combination of 2mg of Versed was administered by the RN after DO order, titrated to patient comfort during the course of the procedure while the patient remained responsive to all verbal commands In the prone position following sterile prep and drape of the lumbar region, the right L5/S1 posterior neuroforamen was identified fluoroscopically. The skin was anesthetized via a 25-gauge 1.5-inch needle with 1% lidocaine solution. At this point, a 25-gauge 3.5-inch spinal needle was atraumatically introduced and advanced under fluoroscopic guidance through the posterior right L5/S1 neuroforamen to approximately the anterior aspect of the canal. Depth was confirmed on lateral view. Following negative aspiration, injection of approximately 1.5cc of Isovue 200 under live fluoroscopy in the AP view confirmed excellent flow along the nerve root, into the epidural space without vascular or intrathecal uptake observed Radiological data, including multiple fluoroscopic views of the lumbosacral spine, reveal a spinal needle at the right L5/S1 posterior neuroforamen. Subsequent views show flow of contrast material flowing superiorly and inferiorly along the nerve root confirming epidural flow. Subsequently, a test dose of 1.5 cc of 1% lidocaine solution was administered and patient was observed for two minutes for signs or symptoms of complications, including abdominal pain, shortness of breath, bilateral upper or lower extremi ty weakness, nausea and vomiting, prior to steroid injection. At this point, a total of 3cc or 20mg of dexamethasone and 6mg of betamethasone was injected without incident. The procedure tolerated the procedure well without signs or symptoms of complications prior to transfer to the recovery area continued monitoring without incident. The patient was then transferred to the recovery area where they were observed for an appropriate time after the injection. The patient reported a VAS score of 7 prior to the procedure and a post- procedure VAS of 0. POST OP INSTRUCTIONS The patient was provided a Pain Log to continue to record their response to the target-specific procedure prior to follow-up visit with their referring physician. Additionally, specific post-injection care instructions and a contact number to our office were provided if concerns arise regarding possible complications associated with the procedure are suspected.
== END 2022-08-08 12:08 | disposition home or self-care (01) ==
LOC: RAD 10:41
PROVIDERS: PCP Family Medicine; Referring Provider Physical Medicine & Rehabilitation; Visit Provider Physical Medicine & Rehabilitation
DX: M48.07 Spinal stenosis, lumbosacral region (principal); M51.17 Intervertebral disc disorders with radiculopathy, lumbosacral region
CPT/HCPCS: 64483; 99152; J0702; J1100; J2250; J3490

== ENCOUNTER → 2022-11-30 09:05 | Outpatient (CLI) | payer MEDICARE, OTHER, SELFPAY ==
[2022-11-30 20:02] LABS: BUN Creatinine Ratio 13.3 (6-22); Blood Urea Nitrogen 14 mg/dL (9-20); Calcium 9.4 mg/dL (8.4-10.2); Carbon Dioxide 26 mmol/L (22-32); Chloride 103 mmol/L (98-107); Cholesterol 163 mg/dL (140-199); Estimated Glomerular Filt Rate > 60 mL/min (>60); Glucose 82 mg/dL (80-110); HDL Cholesterol 39 mg/dL (40-60); HEMOLYSIS < 15 (0-50); LDL Cholesterol Calculated 85 mg/dL (<100); Potassium 4.2 mmol/L (3.4-5.1); Sodium 139 mmol/L (137-145); Triglycerides 195 mg/dL (35-150)
[2022-11-30 20:50] LABS: Vitamin B12 479 pg/mL (239-931)
== END ==
PROVIDERS: PCP Family Medicine; Visit Provider Family Medicine
DX: I10 Essential (primary) hypertension (principal); K22.70 Barrett's esophagus without dysplasia; E78.5 Hyperlipidemia, unspecified
CPT/HCPCS: 80048; 80061; 82607

== ENCOUNTER → 2024-02-04 10:02 | Outpatient (CLI) | payer MEDICARE, OTHER, SELFPAY ==
[2024-02-04 19:37] LABS: Add Manual Diff / Slide Review NO; Basophils Absolute Auto 0 /uL (0-100); Basophils Percent Auto 0.8 % (0-2); Eosinophils Absolute Auto 100 /uL (0-450); Eosinophils Percent Auto 2.2 % (2-4); Hematocrit 37.9 % (41-53); Hemoglobin 12.8 g/dL (13.5-17.5); Lymphocytes Absolute Auto 1500 /uL (1100-4500); Lymphocytes Percent Auto 28.3 % (25-40); Mean Corpuscular HGB Conc 33.8 % (30-36); Mean Corpuscular Hemoglobin 30.9 PG (26-34); Mean Corpuscular Volume 91.2 fL (80-100); Monocytes Absolute Auto 500 /uL (0-900); Neutrophils Absolute Auto 3000 /uL (1500-7000); Neutrophils Percent Auto 58.7 % (50-75); Platelet Count 218 X10^3/uL (150-400); Red Blood Cell Count 4.16 X10^6/uL (4.5-5.9); White Blood Cell Count 5.2 X10^3/uL (4.5-11.0)
[2024-02-04 19:45] LABS: HEMOLYSIS < 15 (0-50)
[2024-02-04 19:48] LABS: Alanine Aminotransferase 7 IU/L (<50); Albumin 4.3 g/dL (3.5-5.0); Albumin Globulin Ratio 1.6 (1.0-2.8); Alkaline Phosphatase 68 U/L (38-126); Aspartate Aminotransferase 25 IU/L (17-59); BUN Creatinine Ratio 15.8 (6-22); Bilirubin Total 0.8 mg/dL (0.2-1.3); Blood Urea Nitrogen 18 mg/dL (9-20); Carbon Dioxide 25 mmol/L (22-32); Chloride 109 mmol/L (98-107); Cholesterol 143 mg/dL (140-199); Estimated Glomerular Filt Rate > 60 mL/min (>60); Globulin 2.7 g/dL (1.7-4.1); Glucose 85 mg/dL (80-110); HDL Cholesterol 38 mg/dL (40-60); LDL Cholesterol Calculated 65 mg/dL (<100); Potassium 4.4 mmol/L (3.4-5.1); Sodium 140 mmol/L (137-145); Triglycerides 198 mg/dL (35-150)
[2024-02-04 20:41] LABS: Vitamin B12 487 pg/mL (239-931)
== END ==
PROVIDERS: PCP Family Medicine; Visit Provider Family Medicine
DX: Z79.01 Long term (current) use of anticoagulants (principal); E78.2 Mixed hyperlipidemia; I10 Essential (primary) hypertension; E53.8 Deficiency of other specified B group vitamins; G62.89 Other specified polyneuropathies
CPT/HCPCS: 80053; 80061; 82607; 85025

== ENCOUNTER → 2024-02-13 10:49 | Outpatient (CLI) | payer MEDICARE, OTHER, SELFPAY ==
[2024-02-13 22:00] LABS: Vitamin B12 426 pg/mL (239-931)
[2024-02-14 20:02] LABS: HEMOLYSIS < 15 (0-50); Iron 69 ug/dL (49-181)
[2024-02-14 20:28] LABS: Percent Iron Saturation 26 % (20-50); Total Iron Binding Capacity 269 ug/dL (261-462); Transferrin 221 mg/dL (206-381)
[2024-02-14 20:37] LABS: TSH w/ Reflex to FT4 1.39 uIU/mL (0.47-4.68)
== END ==
PROVIDERS: PCP Family Medicine; Visit Provider Family Medicine
DX: D64.9 Anemia, unspecified (principal)
CPT/HCPCS: 82607; 83540; 83550; 84443

== ENCOUNTER → 2024-12-24 10:31 | Outpatient (CLI) | payer MEDICARE, OTHER, SELFPAY ==
[2024-12-24 18:38] LABS: Cholesterol 147 mg/dL (140-199); Glucose 89 mg/dL (80-110); HDL Cholesterol 46 mg/dL (40-60); LDL Cholesterol Calculated 73 mg/dL (<100); Triglycerides 139 mg/dL (35-150)
[2024-12-24 19:07] LABS: Prostate Specific Antigen Scrn 1.98 ng/mL (0.1-4.0)
[2024-12-24 19:26] LABS: Vitamin B12 486 pg/mL (239-931)
[2024-12-25 17:02] LABS: Hep C Virus Ab w/Reflex Quant NEGATIVE s/c (NEGATIVE)
== END ==
PROVIDERS: PCP Family Medicine; Visit Provider Family Medicine
DX: Z13.1 Encounter for screening for diabetes mellitus (principal); Z13.6 Encounter for screening for cardiovascular disorders; Z12.5 Encounter for screening for malignant neoplasm of prostate; Z11.59 Encounter for screening for other viral diseases; E53.8 Deficiency of other specified B group vitamins; D64.9 Anemia, unspecified; Z13.220 Encounter for screening for lipoid disorders
CPT/HCPCS: 80061; 82607; 82947; 86803; G0103

== ENCOUNTER → 2025-08-18 09:31 | Outpatient (CLI) | payer MEDICARE, OTHER, SELFPAY ==
[2025-08-18 19:12] LABS: HDL Cholesterol 48 mg/dL (40-60)
[2025-08-18 19:18] LABS: Cholesterol 122 mg/dL (140-199); Triglycerides 78 mg/dL (35-150)
== END ==
LOC: LAB 09:32
PROVIDERS: PCP Family Medicine; Visit Provider Family Medicine
DX: E78.2 Mixed hyperlipidemia (principal)
CPT/HCPCS: 80061